=== PATIENT | female | born 1975 | race Hispanic/Latino ===

== ENCOUNTER 2019-03-25 14:45 | Outpatient (CLI) | payer BC ==
--- NOTE | 2019-03-25 15:33 | MMO ---
Bilateral MAMMO Bilat Screen [facility]DI+THIAGO. CLINICAL HISTORY: Patient is 43 years old and is seen for screening. The patient has no family history of breast cancer. The patient has no personal history of cancer. VIEWS: The views performed were: bilateral craniocaudal with tomosynthesis and bilateral mediolateral oblique with tomosynthesis. FILMS COMPARED: The present examination has been compared to prior imaging studies performed at [facility] on 10/26/2007, 02/10/2017, 03/14/2018 and 03/19/2018. MAMMOGRAM FINDINGS: The breasts are heterogeneously dense, which could obscure a lesion on mammography. There is a new equal density, lobular mass seen in the middle region of the left breast at 3 o'clock. In the right breast, there are no suspicious masses, calcifications or areas of architectural distortion. IMPRESSION: NEW MASS IN THE LEFT BREAST REQUIRES ADDITIONAL EVALUATION. AN ULTRASOUND EXAM IS RECOMMENDED. ADDITIONAL IMAGING. THE RESULTS OF THIS EXAM WERE SENT TO THE PATIENT. ACR BI-RADS Category 0 - Incomplete: Need additional imaging evaluation. [facility] will notify the patient of the need for additional imaging services. MAMMOGRAPHY NOTE: 1. A negative mammogram report should not delay a biopsy if a dominant of clinically suspicious mass is present. 2. Approximately 10% to 15% of breast cancers are not detected by mammography. 3. Adenosis and dense breasts may obscure an underlying neoplasm. Reported by: MITCH REYNA MD Electonically Signed: [id number]
== END 2019-03-25 14:46 | disposition home or self-care (01) ==
LOC: MERGE 14:45 → BICMAMMO 14:45
PROVIDERS: ATTEND Family Medicine
DX: Z12.31 Encounter for screening mammogram for malignant neoplasm of breast (principal); N63.20 Unspecified lump in the left breast, unspecified quadrant
CPT/HCPCS: 77063; 77067

== ENCOUNTER 2019-09-26 15:14 | Outpatient (CLI) | payer BC ==
--- NOTE | 2019-09-26 16:46 | MMO ---
Left Breast MAMMO Unilat Diag DDI LT+THIAGO. CLINICAL HISTORY: Patient is 43 years old and is seen for diagnostic exam. The patient has no family history of breast cancer. The patient has no personal history of cancer. VIEWS: The views performed were: left craniocaudal with tomosynthesis; left mediolateral oblique with tomosynthesis; and left mediolateral with tomosynthesis. FILMS COMPARED: The present examination has been compared to prior imaging studies performed at [facility] on 03/25/2019, 04/01/2019 and 09/26/2019. This study has been interpreted with the assistance of computer-aided detection. MAMMOGRAM FINDINGS: The breast is heterogeneously dense, which could obscure a lesion on mammography. There is a stable focal asymmetry measuring 15 millimeters with indistinct margins seen in the left breast at 3 o'clock. Minimal associated stable architectural irregularity. Several small cysts on ultrasound IMPRESSION: STABLE FOCAL ASYMMETRY IN THE LEFT BREAST REQUIRES ADDITIONAL EVALUATION. BREAST MRI IS RECOMMENDED. THE RESULTS OF THIS EXAM WERE SENT TO THE PATIENT. ACR BI-RADS Category 0 - Incomplete: Need additional imaging evaluation. [facility] will notify the patient of the need for additional imaging services. MAMMOGRAPHY NOTE: 1. A negative mammogram report should not delay a biopsy if a dominant of clinically suspicious mass is present. 2. Approximately 10% to 15% of breast cancers are not detected by mammography. 3. Adenosis and dense breasts may obscure an underlying neoplasm. Reported by: DANIA WILCOX MD Electonically Signed: [id number]
--- NOTE | 2019-09-26 18:36 | ULT ---
LEFT BREAST ULTRASOUND: 09/26/19 HISTORY: Follow-up mammogram. Patient gives a history of nipple discharge. COMPARISON: 04/01/19. FINDINGS: Again noted is an area of slight increased echogenicity in the 3 o'clock position of the left breast approximately 6 cm from the nipple. There are some associated small cysts with this. There does appe ar to be some possible subtle associated architectural distortion. This appearance is stable from the prior mammogram. This area does appear to correspond to the mammographic finding. Because of patient's history of nipple discharge as well as for further evaluation of this area of ab normality in the left breast at 3 o'clock, 6 cm from the nipple, a follow-up MRI examination with and without IV contrast is recommended for further assessment. IMPRESSION: BIRADS 0: Incomplete: Need Additional Imaging Evaluation and/or Prior Mammograms for Comparison. Follow-up bilateral breast MRI with and without IV contrast is recommended. Apparently the patient was not initially approved by insurance for the MRI. The MRI would be beneficial in evaluating for the nipple discharge as well as this area of abnormalit y in the outer left breast. If the MRI examination cannot be performed, I would suggest a six month follow-up left unilateral jeannie gnostic mammogram and left breast ultrasound. If the patient is concerned about waiting the six months, conceivably an ultrasound guided biopsy cou ld be performed in this area of concern in the 3 o'clock position 6 cm from the nipple, although I am not certain how productive it will be since there is not a discrete mass and the cysts are very smal l. These findings were discussed at length with the patient who indicated that she would get back with h er ordering physician and attempt to get the MRI study. POS: OFF
== END 2019-09-26 15:15 | disposition home or self-care (01) ==
LOC: BICMAMMO 15:14
PROVIDERS: ATTEND Nurse Practitioner Women's Health
DX: N64.9 Disorder of breast, unspecified (principal); N64.89 Other specified disorders of breast
CPT/HCPCS: G0279

== ENCOUNTER 2019-10-30 07:45 | Outpatient (CLI) | payer BC ==
--- NOTE | 2019-10-30 11:25 | MRI ---
MRI BILATERAL BREASTS WITHOUT AND WITH CONTRAST: Date: 10/30/2019 COMPARISON: None. HISTORY: The patient was bleeding from the left nipple but has not for the last month. Scab on left nipple that will not heal and often comes off in the shower. TECHNIQUE: Multiplanar, multisequence MR images were obtained of the breasts without and with IV cont rast. Contrast enhancement curves and 3D MIP reformats were generated on a [employer] workstation. FINDINGS: Scattered fibroglandular breast tissue is seen. No significant background parenchymal enhancement is seen. There is enhancement of the left nipple that is asymmetric when compared to the right. This can be a normal finding but is generally symmetric. No enhancing or suspicious mass is seen in either breast. No axillary adenopathy is seen. No internal mammary lymph nodes are identified. The visualized anteri or liver and osseous structures are unremarkable. IMPRESSION: BI-RADS Category 2 - Benign findings. Annual screening mammography recommended. The enhancement of the left nipple is asymmetric. Given that the patient has a nonhealing wound of th e left nipple, Paget's disease of the left nipple, which is a skin process, cannot be entirely exclud ed and a punch biopsy of the left nipple may be necessary for exclusion. POS: [facility]
[2019-10-30] MEDS ORDERED: Magnevist 469MG/ML 20 ML VIAL ONE (14:27)
== END 2019-10-30 07:46 | disposition home or self-care (01) ==
LOC: BICMRI 07:45
PROVIDERS: ATTEND Nurse Practitioner Women's Health
DX: N64.89 Other specified disorders of breast (principal); C44.591 Other specified malignant neoplasm of skin of breast
CPT/HCPCS: A9579; C8908

== ENCOUNTER 2021-03-15 14:10 | Outpatient (CLI) | payer BC ==
[2021-03-15 14:48] LABS: #Eosinphils 0.2 10x3/uL (0.0-0.5); #Monocytes 0.5 10x3/uL (0.0-1.1); #Neutrophils 3.8 10x3/uL (1.5-8.4); %Basophils 0.3 % (0.0-2.0); %Eosinophils 2.9 % (0.0-6.0); %Lymphocytes 31.1 % (18.0-47.0); %Monocytes 7.2 % (0.0-10.0); %Neutrophils 57.7 % (40.0-75.0); Hemoglobin 13.2 g/dL (12.0-15.5); Mean Corpuscular HGB CONC 33.1 g/dL (32.0-36.0); Mean Corpuscular Hemoglobin 28.8 pg (27.0-33.0); Mean Corpuscular Volume 87.1 fl (81.6-98.3); Mean Platelet Volume 10.5 fl (7.4-10.4); Platelet Count 266 10x3/uL (150-450); RBC Distribution Width 13.2 % (11.5-14.5); Red Blood Cell (RBC) Count 4.58 10x6/uL (3.90-5.03); White Blood Cell (WBC) Count 6.5 10x3/uL (3.5-10.5)
[2021-03-15 14:59] LABS: Anion Gap 12 mmol/L (10-20); BUN (Urea Nitrogen) 11 mg/dL (7.0-18.7); Calc. Creatinine Clearance 0 mL/min (70-130); Calcium 9.7 mg/dL (7.8-10.44); Carbon Dioxide 22 mmol/L (22-29); Chloride 106 mmol/L (98-107); Glucose 137 mg/dL (70-105); Potassium 4.1 mmol/L (3.5-5.1); Sodium 136 mmol/L (136-145)
== END 2021-03-15 14:11 | disposition home or self-care (01) ==
LOC: LABBT 14:10
PROVIDERS: ATTEND Specialist
DX: Z01.812 Encounter for preprocedural laboratory examination (principal); C50.912 Malignant neoplasm of unspecified site of left female breast; N64.9 Disorder of breast, unspecified
CPT/HCPCS: 80048; 85025

== ENCOUNTER 2021-10-25 12:42 | Outpatient (CLI) | payer BC | END 2021-10-25 12:43 | disposition home or self-care (01) | LOC: ULT 12:42 | PROVIDERS: ATTEND Internal Medicine Hematology & Oncology | DX: Z51.11 Encounter for antineoplastic chemotherapy (principal); C50.112 Malignant neoplasm of central portion of left female breast; I08.1 Rheumatic disorders of both mitral and tricuspid valves; Z79.899 Other long term (current) drug therapy | CPT/HCPCS: 93306 ==

== ENCOUNTER 2022-03-16 13:48 | Outpatient (CLI) | payer BC | END 2022-03-16 13:49 | disposition home or self-care (01) | LOC: BICMAMMO 13:48 | PROVIDERS: ATTEND Specialist | DX: N64.89 Other specified disorders of breast (principal); Z85.3 Personal history of malignant neoplasm of breast | CPT/HCPCS: G0279 ==

== ENCOUNTER 2022-04-12 15:16 | Outpatient (CLI) | payer BC | END 2022-04-12 15:17 | disposition home or self-care (01) | LOC: BICULT 15:16 | PROVIDERS: ATTEND Specialist | DX: E04.1 Nontoxic single thyroid nodule (principal) | CPT/HCPCS: 76536 ==

== ENCOUNTER 2023-03-17 09:47 | Outpatient (CLI) | payer BC | END 2023-03-17 09:48 | disposition home or self-care (01) | LOC: BICMAMMO 09:47 | PROVIDERS: ATTEND Specialist | DX: C50.912 Malignant neoplasm of unspecified site of left female breast (principal); N64.9 Disorder of breast, unspecified | CPT/HCPCS: G0279 ==

== ENCOUNTER 2024-04-26 09:08 | Outpatient (CLI) | payer BC | END 2024-04-26 09:09 | disposition home or self-care (01) | LOC: BICMAMMO 09:08 | PROVIDERS: ATTEND Specialist | DX: Z08 Encounter for follow-up examination after completed treatment for malignant neoplasm (principal); Z85.3 Personal history of malignant neoplasm of breast | CPT/HCPCS: G0279 ==

== ENCOUNTER 2024-09-25 07:23 | Outpatient (CLI) | payer BC | END 2024-09-25 07:24 | disposition home or self-care (01) | LOC: BICMRI 07:23 | PROVIDERS: ATTEND Family Medicine Sports Medicine | DX: S83.241A Other tear of medial meniscus, current injury, right knee, initial encounter (principal); S82.291A Other fracture of shaft of right tibia, initial encounter for closed fracture; R60.0 Localized edema ==